=== PATIENT | female | born 1945 ===

== ENCOUNTER → 2017-06-02 | Day surgery (SDC) | payer MEDICARE, BC ==
[2017-06-02 13:28] VITALS: RESP 16; TEMP 98.1; BMI 30.6
[2017-06-02 15:54] VITALS: BP 135/81; PULSE 66
--- NOTE | 2017-06-03 12:11 | MM ---
EXAMINATION TYPE: MG stereo VAD BX RT DATE OF EXAM: 06/02/2017 COMPARISON: Outside mammogram dated 05/14/2017 CLINICAL HISTORY: Right breast calcification with request for stereotactic biopsy. TECHNIQUE: Stereotactic guided core biopsy of right breast. FINDINGS: The procedure of stereotactic guided core biopsy was explained to the patient. Benefits, alternatives, and risks were discussed. An informed consent was then obtained. [facility] for degenerative biopsy of a mammographic mass. Shortness pathway was lateral medial approach. 8 cc of lidocaine without epinephrine was utilized to anesthetize the superficial skin surface. Subsequently 10 cc of lidocaine with epinephrine was utilized to anesthetize deeper tissues at the site of biopsy. A vacuum assisted biopsy gun was used to obtain multiple core samples. The patient tolerated the procedure well without any immediate complication. The patient was kept in the radiology department for short stay after the procedure and then discharged home in stable condition. Increased density was identified in specimen mammogram. Post biopsy mammogram shows the clip to appear in satisfactory position relative to the targeted area of concern on the preprocedure images. IMPRESSION: SUCCESSFUL, UNCOMPLICATED STEREOTACTIC GUIDED CORE BIOPSY OF A MAMMOGRAPHIC MASS IN THE RIGHT BREAST, FULL PATHOLOGY RESULTS TO FOLLOW. Pathology Results: Benign BREAST, RIGHT, STEREOTACTIC CORE BIOPSY: FRAGMENT OF FIBROADENOMA. FIBROCYSTIC CHANGE (STROMAL FIBROSIS, CYST FORMATION, DUCT HYPERPLASIA AND SCATTERED MICROCALCIFICATIONS). Recommendation Follow up mammogram of the right breast in 6 months. MTDD
== END ==
LOC: RADMAMWWP 13:01
PROVIDERS: ATTEND Family Medicine
DX: D24.1 Benign neoplasm of right breast (principal); N60.31 Fibrosclerosis of right breast; N60.01 Solitary cyst of right breast; N60.91 Unspecified benign mammary dysplasia of right breast; R92.0 Mammographic microcalcification found on diagnostic imaging of breast
CPT/HCPCS: 88305; 19081; A4648; J2001

== ENCOUNTER → 2023-06-02 | Outpatient (CLI) | payer MEDICARE ==
--- NOTE | 2023-06-02 22:13 | MR ---
EXAMINATION TYPE: MR knee LT wo con DATE OF EXAM: 06/02/2023 COMPARISON: NONE HISTORY: Left knee pain for 2 weeks. TECHNIQUE: Multiplanar, multisequence images of the knee is performed without IV contrast. FINDINGS: MEDIAL MENISCUS: Horizontal oblique signal posterior horn extends to the inferior articular surface s agittal image 26. LATERAL MENISCUS: Oblique signal posterior horn appears to extend to articular surface sagittal image 8 and coronal image 24. CRUCIATE LIGAMENTS: The anterior and posterior cruciate ligaments are intact and unremarkable. COLLATERAL LIGAMENTS: The medial collateral ligament and lateral collateral ligament complex are inta ct . Fluid signal surrounds the medial collateral ligament. EXTENSOR MECHANISM: Visualized quadriceps and patellar tendons are intact. EFFUSION: Small size suprapatellar joint effusion. POPLITEAL CYST: Small size popliteal/miller cyst. TRICOMPARTMENT SPACES: Mild to moderate tricompartment joint space loss and spurring. CARTILAGE: Chondromalacia patella with cartilaginous loss along the posterior patellar pole. Some car tilaginous loss medial tibiofemoral compartment. BONE MARROW SIGNAL: No focal abnormal marrow signal is appreciated. OTHER: No additional significant abnormality is appreciated. IMPRESSION: 1. Full-thickness tear posterior horn of medial meniscus. 2. Full thickness tear posterior horn of lateral meniscus. 3. Mild MCL sprain injury. 4. Mild to moderate tricompartment degenerative changes left knee as detailed above. 5. Small size suprapatellar joint effusion. 6. Small size popliteal cyst.
== END | disposition home or self-care (01) ==
LOC: RADMRIMAIN 17:16
PROVIDERS: ATTEND Orthopaedic Surgery
DX: M84.362A Stress fracture, left tibia, initial encounter for fracture (principal); S83.242A Other tear of medial meniscus, current injury, left knee, initial encounter; M17.12 Unilateral primary osteoarthritis, left knee; M25.462 Effusion, left knee; M71.22 Synovial cyst of popliteal space [Baker], left knee